=== PATIENT | female | born 1940 | race Caucasian/White ===

== ENCOUNTER 2025-01-30 09:33 | Outpatient (CLI) | payer OTHER ==
[~2025-01-30 09:33] MED LIST: SYNTHROID100 MCG
== END 2025-01-30 09:34 | disposition home or self-care (01) ==
LOC: NUCLEAR 09:33
DX: C34.90 Malignant neoplasm of unspecified part of unspecified bronchus or lung (principal)
CPT/HCPCS: 78816; A9552